=== PATIENT | female | born 1960 | race Caucasian/White ===

== ENCOUNTER → 2024-09-05 | Outpatient (CLI) | payer MEDICARE, OTHER, SELFPAY ==
--- NOTE | 2024-09-05 14:41 | XR_ITS ---
Examination: Bilateral hands, 6 views. Technique: AP, Oblique, Lateral each hand total 6 views Date and time of exam: September 05, 2024 1533 hours INDICATIONS: Injury to the right hand 8 months ago with pain Findings: Severe osteopenia Healed fracture distal right radial metaphysis No acute fracture No cortical bone destruction Old fracture also right ulnar styloid tip Old fracture deformity distal left radial metaphysis with moderate posttraumatic osteoarthritis left radiocarpal joint No erosive arthritis No acute fracture IMPRESSION: Healed fracture distal right radial metaphysis with satisfactory alignment Old fracture deformity distal left radial metaphysis with moderate posttraumatic osteoarthritis left radiocarpal joint
--- NOTE | 2024-09-05 14:41 | XR_ITS ---
Examination: Bilateral wrists 6 views TECHNIQUE: AP oblique lateral each wrist total 6 views Exam date and time: September 05, 2024 1533 hours INDICATIONS: Injury to the right wrist 8 months ago with persistent wrist pain. FINDINGS: Significant osteopenia Healed fracture distal left radial metaphysis Moderate osteoarthritis left radiocarpal joint No acute fracture Healed fracture distal right radial metaphysis with satisfactory alignment Satisfactory position orthopedic hardware Ununited ulnar styloid tip fracture No acute fracture IMPRESSION: Healed fracture distal left radial metaphysis Moderate osteoarthritis left radiocarpal joint Healed fracture distal right radial metaphysis with satisfactory alignment
== END | disposition home or self-care (01) ==
PROVIDERS: PCP Family Medicine; Referring Provider Nurse Practitioner Gerontology; Visit Provider Nurse Practitioner Gerontology
DX: M79.641 Pain in right hand (principal); M79.642 Pain in left hand; M25.531 Pain in right wrist; M19.032 Primary osteoarthritis, left wrist; S69.91XS Unspecified injury of right wrist, hand and finger(s), sequela; X58.XXXS Exposure to other specified factors, sequela; Z87.81 Personal history of (healed) traumatic fracture
CPT/HCPCS: 73110; 73130